=== PATIENT | male | born 1995 | race Caucasian/White ===

== ENCOUNTER 2016-08-03 21:21 | Emergency (ER) | payer SELFPAY ==
[~2016-08-03] VITALS: Ht 175.3 cm; Wt 77.1 kg
[2016-08-03 21:30] VITALS: BP 161/82
[2016-08-03] MEDS ORDERED: IBUPROFEN 600 MG TABLET PO ONE ×2 (23:00→23:01)
== END 2016-08-04 00:18 | disposition home or self-care (01) ==
LOC: ER 21:25
DX: R07.89 Other chest pain (principal)
CPT/HCPCS: 71010-TC; A4606; Z7610

== ENCOUNTER 2017-01-19 16:54 | Emergency (ER) | payer SELFPAY ==
[~2017-01-19] VITALS: Ht 200.7 cm; Wt 79.4 kg
--- NOTE | 2017-01-19 17:00 | NUR ---
PATIENT TO ED DT PSSOBLE ANXIETY-- CO TINGING SENSATION ON BUE AFTER WORK OUT, PT ALSO CO CHEST/ EPIGASTRIC PAIN. PATIENT APPEARS ANXIOUS. RESPIRATION EVEN AND UNALBORED. AFEBRILE. VSS
[2017-01-19 18:11] VITALS: BP 140/80
== END 2017-01-19 18:12 | disposition home or self-care (01) ==
LOC: ER 16:56
DX: F41.0 Panic disorder [episodic paroxysmal anxiety] (principal)
CPT/HCPCS: 71010; 76770; 93005; 99284; A4606; Z7610